=== PATIENT | male | born 1960 | race Caucasian/White ===

== ENCOUNTER 2017-01-25 14:49 | Outpatient (CLI) | payer BC ==
--- NOTE | 2017-01-25 16:36 | DIAGNOSTIC IMAGING REPORT ---
PROCEDURE: US KIDNEY/RENAL COMPLETE INDICATION: GROSS HEMATURA TECHNIQUE: Concepcion scale and color Doppler sonographic imaging of the kidneys and urinary bladder was obtained. Intrarenal resistive indices were calculated when appropriate. COMPARISON: Abdominal CT dated 11/10/2014 FINDINGS: The right kidney measures 11.4 x 5 x 4.6 cm Normal cortical thickness and echogenicity. No hydronephrosis, cyst, solid mass, or shadowing calculus. Normal color Doppler blood flow throughout the kidney. Resistive indices in the intrarenal parenchymal arteries range from 0.53-0.62. The left kidney measures 11.3 x 5.7 x 5.5 cm Normal cortical thickness and echogenicity. No hydronephrosis, cyst, solid mass, or shadowing calculus. Normal color Doppler blood flow throughout the kidney. Resistive indices in the intrarenal parenchymal arteries range from 0.50-0.59 The filled urinary bladder has a volume of 501 ml and a post void residual of 356 ml The urinary bladder contains three mobile stones. IMPRESSION: 1. Normal renal morphology. 2. 3 mobile bladder stones.
== END 2017-01-25 23:00 ==
LOC: US SRH 14:49
DX: N21.0 Calculus in bladder (principal)